=== PATIENT | female | born 1995 | race Caucasian/White ===

== ENCOUNTER 2017-06-09 15:22 | Emergency (ER) | payer OTHER ==
[~2017-06-09] VITALS: Ht 147.3 cm; Wt 35.9 kg
[2017-06-09 15:27] VITALS: TEMP 36.9; Ht 147.3 cm; Wt 35.9 kg
--- NOTE | 2017-06-09 16:29 | EMERGENCY ROOM VISIT NOTE ---
History First contact with patient: 15:58 Chief Complaint: WOUND INFECTION Stated Complaint: BIG RED PIMPLE IN ARMPIT Nursing Triage Summary: Patient states she has multiple little lumps under her skin that have been there over one year. She has had them checked before but was told they were not concerning unless they became red. One small lump under left axilla is now red and sore. History of Present Illness The patient is a 21 year old female who presents to the Emergency Room via private vehicle with complaints of "big red pimple and arm pit". The patient states that over the past few years she has had small bumps on her skin in both the axilla and on her chest. She states that she is from [place], and her doctor back home told her that there is nothing to do about them a message become red and painful. She states that she is here today because one is red and painful in the left axilla. She states she notes last night, and it was normal for her but since then has progressed to being red and painful. She denies any recent illness or travel, no recent antibiotic use, no medicine, and no pertinent past medical history. She denies any fevers, chills, night sweats , nausea, vomiting, chills, urinary abnormality is, chest pain, shortness of breath. She has had diarrhea for the past 2 days. Review of Systems A complete 6-point Review of Systems was discussed with the patient, with pertinent positives and negatives listed in the History of Present Illness. All remaining Review of Systems questions can be considered negative unless otherwise specified. Past Medical/Surgical History Medical Problems: (1) No significant medical problems Surgical Problems: (1) No significant past surgical history Family History No pertinent. Social History Smoking Status: Never Smoker Alcohol Use: none Marital Status: single Occupation Status: [employer] student Patient is currently a [employer] student. Current/Historical Medications Scheduled Cephalexin Monohydrate (Keflex), 500 MG PO QID Sulfa/Trimethoprim (Bactrim Ds 800MG/160MG), 1 TAB PO BID Physical Exam Vital Signs Date Time Temp Pulse Resp B/P (MAP) Pulse Ox O2 Delivery O2 Flow Rate FiO2 06/09/17 18:17 70 15 119/68 100 06/09/17 15:27 36.9 80 16 120/84 99 Room Air Physical Exam VITAL SIGNS - Vital signs and nursing notes were reviewed. Afebrile, normotensive, non-tachycardic and saturating well on room air at 99%. GENERAL -21-year-old female appearing her stated age who is in no acute distress. Communicates well with provider and answers questions appropriately. SKIN - there is a small nodule measuring 1 cm in diameter appreciable in the left axilla favoring the proximal aspect of the humerus. This is tender to palpation, but not fluctuant. Small surrounding area of erythema. No lymphangitic streaking. Full range of motion of this region. No other abnormalities noted of this extremity. HEAD - NC/AT. LUNGS - Chest wall symmetric without accessory muscle use, intercostals retractions, or central cyanosis. Normal vesicular breath sounds CTA B/L. No wheezes, rales, or rhonchi appreciated. CARDIAC - RRR with S1/S2. No murmur, rubs, or gallops appreciated. NEUROLOGIC - Cranial nerves II through XII grossly intact. PSYCH - A&O. Pt is very pleasant and interacts well with examiner. Medical Decision & Procedures ER Provider Diagnostic Interpretation: LEFT EXTREMITY NONVASCULAR LIMITED CLINICAL HISTORY: 21 years-old Female presenting with Lump in axilla. Absess/sebaceous cyst/lymph node?. TECHNIQUE: Real-time grayscale ultrasound imaging of the right axilla was performed. Color Doppler was also performed. COMPARISON: None. FINDINGS: Focal examination at the site of clinical interest in the right axilla demonstrates and ill-defined heterogeneously hypoechoic 0.8 x 0.4 x 0.7 cm region in the subcutaneous fat. Heterogeneous peripheral vascularity. This does not have a configuration of a lymph node. IMPRESSION: 1. Heterogeneous subcentimeter collection in the subcutaneous tissue of the axilla suggestive of phlegmon/early abscess. Electronically signed by: Kofi Hoffmann M.D. 06/09/2017 5:36 PM Dictated Date/Time: 06/09/2017 5:34 PM Medications Administered Medications (Trade) Dose Ordered Sig/Essence Route Start Time Stop Time Status Last Admin Dose Admin Ibuprofen (Advil Tab) 200 mg NOW STAT PO 06/09/17 18:08 06/09/17 18:21 DC 06/09/17 18:14 200 MG Medical Decision Patient was seen and evaluated as above. After obtaining a thorough history and physical examination it was decided that an ultrasound to be performed of the region as concerned this could be a lymph node. Ultrasound exclude lymph node. This is likely phlegmon/early abscess. Because the location, I do not believe that trying to incise this is appropriate. At this time we'll begin with a course of Keflex and Bactrim. Care was taken to ensure that this was cannulated appropriately for her weight. This was discussed with the pharmacist. She is to return with worsening, and to follow-up with [facility]. She is a [employer] student. At this time she is not septic, and has stable vital signs. She appears to be stable for outpatient management. She was educated upon worrisome symptoms which to return, had questions about it, and was discharged home in good condition. In evaluation treatment this patient following differential diagnoses were entertained: Cellulitis, lymph node enlargement, abscess, among others. Impression Primary Impression: Cellulitis Departure Information Dispostion Home / Self-Care Condition GOOD Prescriptions Sulfa/Trimethoprim (Bactrim Ds 800MG/160MG) Tab 1 TAB PO BID for 10 Days, #20 TAB Prov: Eddie Lezama PA-C 06/09/17 Cephalexin Monohydrate (Keflex) 500 Mg Cap 500 MG PO QID for 10 Days, #40 CAP Prov: Eddie Lezama PA-C 06/09/17 Referrals No Doctor, Assigned (PCP) Patient Instructions [facility] Additional Instructions You have been treated in the Emergency Department your left armpit swelling, which has been determined to be an infection. You've been prescribed Keflex. This is 500 mg every 6 hours for 10 days. This is an antibiotic. You have prescribed Bactrim. This is one tablet every 12 hours for 10 days. This is an antibiotic. Please take these as directed. Please pick these up with the pharmacy. I recommend following up with [facility], as well as returning here for any worsening of her symptoms. As we discussed you're ultrasound does reveal Focal examination at the site of clinical interest in the right axilla demonstrates and ill-defined heterogeneously hypoechoic 0.8 x 0.4 x 0.7 cm region in the subcutaneous fat. Heterogeneous peripheral vascularity. This does not have a configuration of a lymph node. 1. Heterogeneous subcentimeter collection in the subcutaneous tissue of the axilla suggestive of phlegmon/early abscess. For pain she may take ibuprofen. This is 200 mg every 6 hours as needed for your pain. Drink plenty of water and stay well hydrated. As with any trip to the Emergency Department, you should follow-up with your Primary Care Provider from today's visit. Please call [facility] to schedule follow-up. Please watch for worsening redness, swelling or drainage and if these were to occur please return medially. Please also return for any fevers or chills. Return to the emergency department if your symptoms persist despite treatment plan outlined above or if the following symptoms occur: increased fevers, chills , worsening nausea/vomiting, blood in your stool or urine. Thank you for your time. If you have any questions please do not hesitate to call [phone]
--- NOTE | 2017-06-09 17:37 | DIAGNOSTIC IMAGING REPORT ---
LEFT EXTREMITY NONVASCULAR LIMITED CLINICAL HISTORY: 21 years-old Female presenting with Lump in axilla. Absess/sebaceous cyst/lymph node?. TECHNIQUE: Real-time grayscale ultrasound imaging of the right axilla was performed. Color Doppler was also performed. COMPARISON: None. FINDINGS: Focal examination at the site of clinical interest in the right axilla demonstrates and ill-defined heterogeneously hypoechoic 0.8 x 0.4 x 0.7 cm region in the subcutaneous fat. Heterogeneous peripheral vascularity. This does not have a configuration of a lymph node. IMPRESSION: 1. Heterogeneous subcentimeter collection in the subcutaneous tissue of the axilla suggestive of phlegmon/early abscess. Electronically signed by: Kofi Hoffmann M.D. 06/09/2017 5:36 PM Dictated Date/Time: 06/09/2017 5:34 PM
[2017-06-09] MEDS ORDERED: SULF800T23 PO (18:07)
[2017-06-09] MEDS ORDERED: CEPH500C PO (18:07)
[2017-06-09] MEDS ORDERED: IBUPROFEN 200 MG TAB PO STA (18:08)
[2017-06-09 18:17] VITALS: BP 119/68; PULSE 70; O2SAT 100
== END 2017-06-09 18:18 | disposition home or self-care (01) ==
LOC: C.EDB 15:24 → C.EDD 18:18
DX: L03.112 Cellulitis of left axilla (principal)

== ENCOUNTER 2017-10-25 02:48 | Emergency (ER) | payer OTHER ==
[~2017-10-25] VITALS: Ht 144.8 cm; Wt 38.0 kg
[2017-10-25 02:53] VITALS: Ht 144.8 cm; Wt 38.0 kg
[2017-10-25] MEDS ORDERED: ALUMINUM/MAGNESIUM SUSP 30 ML UDC PO STA (03:10)
[2017-10-25] MEDS ORDERED: LIDOCAINE HCL 2% VISC SOLN 20 ML UDC PO STA (03:10)
[2017-10-25] MEDS ORDERED: SODIUM CHLORIDE 0.9% 1000ML 1,000 ML IV STA (03:10)
[2017-10-25 03:27] VITALS: O2SAT 98
[2017-10-25 03:55] LABS: HEMATOCRIT 40.8 % (37-47); HEMOGLOBIN 13.7 g/dL (12.0-16.0); MEAN CELL VOLUME 80.8 fL (80-100); MEAN CORPUSCULAR HEMOGLOBIN 27.1 pg (25-34); MEAN CORPUSCULAR HGB CONC 33.6 g/dl (32-36); MEAN PLATELET VOLUME 10.6 fL (7.4-10.4); PLATELET COUNT 185 K/uL (130-400); RED CELL DISTRIBUTION WIDTH CV 12.4 % (11.5-14.5); RED CELL DISTRIBUTION WIDTH SD 36.2 fL (36.4-46.3); WHITE BLOOD COUNT 2.72 K/uL (4.8-10.8)
[2017-10-25 04:13] LABS: ALKALINE PHOSPHATASE 46 U/L (45-117); ALT/SGPT 21 U/L (12-78); AST/SGOT 28 U/L (15-37); BLOOD UREA NITROGEN 7 mg/dl (7-18); CALCIUM 8.5 mg/dl (8.5-10.1); CARBON DIOXIDE 27 mmol/L (21-32); CREATININE 0.59 mg/dl (0.60-1.20); GLUCOSE 80 mg/dl (70-99); POTASSIUM 3.1 mmol/L (3.5-5.1); SODIUM 137 mmol/L (136-145); TOTAL PROTEIN 7.4 gm/dl (6.4-8.2)
[2017-10-25] MEDS ORDERED: POTASSIUM CHLORIDE 10 MEQ TABCR PO STA (04:25)
[2017-10-25 05:42] VITALS: BP 109/63; PULSE 90; TEMP 36.6; O2SAT 98
--- NOTE | 2017-10-25 05:45 | EMERGENCY ROOM VISIT NOTE ---
History First contact with patient: 02:56 Chief Complaint: DIZZY Stated Complaint: DIZZY,DIARRHEA SINCE TUESDAY Nursing Triage Summary: pt ambulatory to triage, states diarrhea started tuesday night and today started feeling dizzy. pt states it feels better to lay down. denies vomiting. History of Present Illness The patient is a 22 year old female who presents to the Emergency Room with complaints of upset stomach and diarrhea for the past few days. No recent antibiotics. No well water. She returned home from [facility] 2 weeks ago. Patient denies chest pain, dyspnea, fever, chills, vomiting, back pain, urinary symptoms. She's had a few episodes of diarrhea but nothing major. Patient states she does not eat much. She states she has no desire to eat and this is not new. Patient states she feels slightly lightheaded is worse standing up and better with laying down. Review of Systems See HPI for pertinent positives & negatives. A total of 10 systems reviewed and were otherwise negative. Past Medical/Surgical History Medical Problems: (1) No significant medical problems Surgical Problems: (1) No significant past surgical history Social History Smoking Status: Never Smoker Smokeless Tobacco Use: No Alcohol Use: none Drug Use: none Marital Status: single Occupation Status: [employer] student Current/Historical Medications No Active Prescriptions or Reported Meds Physical Exam Vital Signs Date Time Temp Pulse Resp B/P (MAP) Pulse Ox O2 Delivery O2 Flow Rate FiO2 10/25/17 05:42 36.6 90 16 109/63 98 Room Air 10/25/17 04:53 90 16 117/72 98 10/25/17 03:34 94 10/25/17 03:27 100 Room Air 10/25/17 03:27 98 Room Air 10/25/17 03:24 58 16 116/54 100 Room Air 86 113/63 92 106/73 10/25/17 02:53 36.6 94 18 108/70 100 Room Air Physical Exam VITALS: Vitals are noted on the nurse's note and reviewed by myself. Vital signs stable. GENERAL: Pleasant female, in no acute distress, nondiaphoretic, well-developed well-nourished. SKIN: The skin was without rashes, erythema, edema, or bruising. There is no tenting of the skin. Capillary reflex less than 2 seconds. HEAD: Normocephalic atraumatic. EARS: External auditory canals clear, tympanic membranes pearly goddard without erythema or effusion bilaterally. EYES: Pupils equal round and reactive to light and accommodation. Conjunctivae without injection, sclerae without icterus. Extraocular movements intact. NOSE: Patent, turbinates without inflammation or discharge. No sinus tenderness. MOUTH: Mucous membranes mildly dry. Pharynx without erythema or exudate. Uvula midline. Airway patent. Tongue does not deviate. NECK: Supple without nuchal rigidity. No lymphadenopathy. No thyromegaly. Cervical spine is nontender. No JVD. HEART: Regular rate and rhythm without murmurs gallops or rubs. LUNGS: Clear to auscultation bilaterally without wheezes, rales or rhonchi. No dullness to percussion. No retractions or accessory muscle use. ABDOMEN: Positive bowel sounds x 4. Normal tympanic percussion. Soft, nontender, without masses or organomegaly. Fernández sign negative. No guarding or rebound tenderness. No CVA tenderness MUSCULOSKELETAL: No muscle atrophy, erythema, or edema noted. NEURO: Patient was alert and oriented to person place and time. Normal sensation to light and sharp touch. No focal neurological deficits. Medical Decision & Procedures Laboratory Results 10/25/17 03:30 Red Blood Count 5.05, Mean Corpuscular Volume 80.8, Mean Corpuscular Hemoglobin 27.1, Mean Corpuscular Hemoglobin Concent 33.6, Mean Platelet Volume 10.6 10/25/17 03:30 Test 10/25/17 03:15 10/25/17 03:30 Urine Color YELLOW Urine Appearance CLEAR (CLEAR) Urine pH 5.5 (4.5-7.5) Urine Specific [place] 1.016 (1.000-1.030) Urine Protein NEG (NEG) Urine Glucose (UA) NEG (NEG) Urine Ketones NEG (NEG) Urine Occult Blood NEG (NEG) Urine Nitrite NEG (NEG) Urine Bilirubin NEG (NEG) Urine Urobilinogen NEG (NEG) Urine Leukocyte Esterase NEG (NEG) White Blood Count 2.72 K/uL (4.8-10.8) Red Blood Count 5.05 M/uL (4.2-5.4) Hemoglobin 13.7 g/dL (12.0-16.0) Hematocrit 40.8 % (37-47) Mean Corpuscular Volume 80.8 fL (80-100) Mean Corpuscular Hemoglobin 27.1 pg (25-34) Mean Corpuscular Hemoglobin Concent 33.6 g/dl (32-36) Platelet Count 185 K/uL (130-400) Mean Platelet Volume 10.6 fL (7.4-10.4) RDW Standard Deviation 36.2 fL (36.4-46.3) RDW Coefficient of Variation 12.4 % (11.5-14.5) Neutrophils % (Manual) 34.2 % Lymphocytes % (Manual) 38.6 % Variant Lymphocytes % (manual) 15.8 % Monocytes % (Manual) 9.6 % Eosinophils % (Manual) 0.9 % Basophils % (Manual) 0.9 % Neutrophils # (Manual) 0.93 K/uL (1.4-6.5) Total Absolute Neutrophils 0.93 K/uL (1.4-6.5) Lymphocytes # (Manual) 1.05 K/uL (1.2-3.4) Absolute Variant Lymphocytes 0.43 K/uL Total Absolute Lymphocytes 1.48 K/uL (1.2-3.4) Monocytes # (Manual) 0.26 K/uL (0.11-0.59) Eosinophils # (Manual) 0.02 K/uL (0-0.5) Basophils # (Manual) 0.02 K/uL (0-0.2) Ovalocytes 1+ Anion Gap 5.0 mmol/L (3-11) Est Creatinine Clear Calc Drug Dose 89.7 ml/min Estimated GFR () > 150.0 Estimated GFR (Non- 130.1 BUN/Creatinine Ratio 12.4 (10-20) Calcium Level 8.5 mg/dl (8.5-10.1) Total Bilirubin 0.5 mg/dl (0.2-1) Direct Bilirubin 0.1 mg/dl (0-0.2) Aspartate Amino Transf (AST/SGOT) 28 U/L (15-37) Alanine Aminotransferase (ALT/SGPT) 21 U/L (12-78) Alkaline Phosphatase 46 U/L (45-117) Total Protein 7.4 gm/dl (6.4-8.2) Albumin 4.0 gm/dl (3.4-5.0) Human Chorionic Gonadotropin, Qual NEG (NEG) Medications Administered Medications (Trade) Dose Ordered Sig/Essence Route Start Time Stop Time Status Last Admin Dose Admin Lidocaine HCl (Viscous Lidocaine 2% Soln) 10 ml NOW STAT PO 10/25/17 03:10 10/25/17 03:12 DC 10/25/17 03:42 10 ML Al Hydroxide/Mg Hydroxide (Maalox Susp) 30 ml NOW STAT PO 10/25/17 03:10 10/25/17 03:12 DC 10/25/17 03:42 30 ML Sodium Chloride 1,000 ml @ 999 mls/hr Q1H1M STAT IV 10/25/17 03:10 10/25/17 04:10 DC 10/25/17 03:42 999 MLS/HR Potassium Chloride (Klor-Con M10) 40 meq NOW STAT PO 10/25/17 04:25 10/25/17 04:26 DC 10/25/17 04:46 40 MEQ ED Course Prior records/ancillary studies reviewed. Triage Nursing notes reviewed. The patient's history was concerning for nausea, lightheadedness diarrhea, and upset stomach. Differential diagnosis: Etiologies such as dehydration, starvation, gastroenteritis, food borne illness , infections, appendicitis, diverticulitis, inflammatory bowel disease, obstruction, GI bleed, biliary pathology, as well as others were entertained. Physical examination findings: As above. Abdominal examination revealed no tenderness. Vital signs reviewed and revealed positive orthostatics. ER treatment provided: IV hydration 1 L NSS. GI cocktail On reassessment the patient felt better. Patient was tolerating p.o. intake. Diagnostics interpretation by me: The labs revealed wbc 2.72, with a low absolute neutrophil count Stable H&H This appears to be consistent with dehydration and low absolute neutrophil count who is afebrile and nontoxic. Patient was advised to repeat her CBC within the week with health services and if her neutrophil count is still low to follow-up with hematology. Patient was strongly encouraged to eat regular meals and stay well-hydrated. She did not have acute abdomen on exam. She is well-appearing. She is tolerating fluids. She is advised to follow-up health services in a few days or here in the ER sooner for abdominal pain, fevers, vomiting, worsening signs or symptoms or as needed By the evaluation outlined above emergent etiologies such as appendicitis, diverticulitis, obstruction, cardiac sources, mesenteric ischemia, aortic pathology, inflammatory bowel disease, renal colic, PUD, biliary pathology, UTI, as well as others were deemed relatively unlikely. The pt informed about the findings as listed above. All questions were answered and pleased with the treatment. Return instructions were outlined and the patient was discharged in stable condition. Case reviewed with my attending Referral: The patient was referred to their primary care physician/S for follow-up in 2 to 3 days for a recheck of the current condition. Medical Decision As above Medication Reconcilliation Current Medication List: was personally reviewed by me Blood Pressure Screening Patient's blood pressure: Normal blood pressure Impression Primary Impression: Dehydration Additional Impressions: Diarrhea Hypokalemia Departure Information Dispostion Home / Self-Care Condition GOOD Prescriptions No Active Prescriptions or Reported Meds Referrals [facility] (PCP) Patient Instructions My [facility] Additional Instructions You need to have your CBC rechecked within the week by health services. Your absolute neutrophil count is low. Zofran(odansetron) tablets 4mg: Take one and allow it to dissolve in your mouth every four to six hours as needed for nausea or vomiting. Rest and drink plenty of fluids as tolerated. Slow sips of water or sports drinks are recommended instead of large amounts all at once. Continue current medications. Once your stomach is settled start with a clear liquid diet (jello, soup broth, etc.) and then advance as tolerated. You should avoid full, heavy meals for about 24 hrs from the time your symptoms resolved. Return to the ER for persistent vomiting, fevers, abdominal pain, chest pains, difficulty breathing, black or bloody stools, worsening of your condition, or as needed. Follow up with your primary physician/health services in 2-3 days for a recheck of your current condition. Problem Qualifiers
[2017-10-25] MEDS ORDERED: ONDANSETRON HOME PACK 4MG OD TAB PO ONE (06:00)
== END 2017-10-25 06:06 | disposition home or self-care (01) ==
LOC: C.EDB 02:48
DX: E86.0 Dehydration (principal); R19.7 Diarrhea, unspecified; E87.6 Hypokalemia

== ENCOUNTER 2017-10-29 01:37 | Emergency (ER) | payer OTHER ==
[~2017-10-29] VITALS: Ht 144.8 cm; Wt 38.1 kg
[2017-10-29 01:41] VITALS: TEMP 36.5; Ht 144.8 cm; Wt 38.1 kg
[2017-10-29] MEDS ORDERED: DICYCLOMINE HCL 20 MG TAB PO STA (02:15)
[2017-10-29] MEDS ORDERED: DICYCLOMINE HCL 10 MG CAP ONE (02:20)
[2017-10-29 02:38] LABS: HEMATOCRIT 36.2 % (37-47); HEMOGLOBIN 12.2 g/dL (12.0-16.0); MEAN CELL VOLUME 80.6 fL (80-100); MEAN CORPUSCULAR HEMOGLOBIN 27.2 pg (25-34); MEAN CORPUSCULAR HGB CONC 33.7 g/dl (32-36); MEAN PLATELET VOLUME 10.3 fL (7.4-10.4); PLATELET COUNT 192 K/uL (130-400); RED CELL DISTRIBUTION WIDTH CV 12.4 % (11.5-14.5); RED CELL DISTRIBUTION WIDTH SD 36.3 fL (36.4-46.3); WHITE BLOOD COUNT 3.43 K/uL (4.8-10.8)
[2017-10-29 02:56] LABS: ALBUMIN 3.7 gm/dl (3.4-5.0); ALT/SGPT 24 U/L (12-78); AST/SGOT 19 U/L (15-37); BLOOD UREA NITROGEN 9 mg/dl (7-18); CALCIUM 8.6 mg/dl (8.5-10.1); CARBON DIOXIDE 28 mmol/L (21-32); CREATININE 0.52 mg/dl (0.60-1.20); GLUCOSE 86 mg/dl (70-99); POTASSIUM 3.4 mmol/L (3.5-5.1); SODIUM 140 mmol/L (136-145)
[2017-10-29 02:59] LABS: ALKALINE PHOSPHATASE 50 U/L (45-117); TOTAL PROTEIN 6.8 gm/dl (6.4-8.2)
[2017-10-29] MEDS ORDERED: MAGNESIUM HYDROXIDE SUSP 30 ML UDC PO ONE (03:15)
--- NOTE | 2017-10-29 04:35 | EMERGENCY ROOM VISIT NOTE ---
History Report prepared by Debbei: Marge Wan Under the Supervision of: Dr. Eilsabeth Mantilla D.O. First contact with patient: 02:03 Chief Complaint: CONSTIPATION Stated Complaint: HAVE NOT POOPED SINCE TUE. PAIN IN MY STOMACH History of Present Illness The patient is a 22 year old female who presents to the Emergency Room with complaints of persistent constipation starting 4 days ago. The patient was seen in the ED 5 days ago with diarrhea. Her last bowel movement was diarrhea 4 days ago. She is still passing gas, but has not had any bowel movements. She reports abdominal pain which occurs after eating. She reports abdominal bloating. She denies any vomiting, fever, or chills. She has been eating and drinking well. She has recently traveled to [facility] and [place] and has been eating many different foods. She was also found to have low potassium 5 days ago. Source of History: patient Onset: 4 days ago Position: other (global) Quality: other (constipation) Timing: other (persistent) Associated Symptoms: + abdominal pain, No fevers, No chills, No vomiting Review of Systems See HPI for pertinent positives & negatives. A total of 10 systems reviewed and were otherwise negative. Past Medical & Surgical Medical Problems: (1) No significant medical problems Surgical Problems: (1) No significant past surgical history Family History Diabetes mellitus FHx: cancer Kidney disease Kidney stones Social History Smoking Status: Never Smoker Alcohol Use: none Drug Use: none Marital Status: single Occupation Status: [employer] Current/Historical Medications No Active Prescriptions or Reported Meds Allergies Coded Allergies: No Known Allergies (Unverified , 10/29/17) Physical Exam Vital Signs Date Time Temp Pulse Resp B/P (MAP) Pulse Ox O2 Delivery O2 Flow Rate FiO2 10/29/17 04:49 85 20 111/72 99 10/29/17 03:00 86 20 104/63 98 Room Air 10/29/17 01:41 36.5 91 18 99/61 94 Room Air Physical Exam GENERAL: alert, well appearing, well nourished, no distress, non-toxic EYE EXAM: normal conjunctiva, PERRL and EOM's grossly intact OROPHARYNX: no exudate, no erythema, lips, buccal mucosa, and tongue normal and mucous membranes are moist NECK: supple, no nuchal rigidity, no adenopathy, non-tender LUNGS: Clear to auscultation. Normal chest wall mechanics HEART: no murmurs, S1 normal and S2 normal ABDOMEN: abdomen soft, dull to percussion, non-tender, normo-active bowel sounds , no masses, no rebound or guarding. BACK: Back is symmetrical on inspection and there is no deformity, no midline tenderness, no CVA tenderness. SKIN: no rashes and no bruising UPPER EXTREMITIES: upper extremities are grossly normal. LOWER EXTREMITIES: No pitting edema. NEURO EXAM: Normal sensorium, cranial nerves II-XII grossly intact, normal speech, no gross weakness of arms, no gross weakness of legs. Medical Decision & Procedures ER Provider Diagnostic Interpretation: X-ray: I interpreted the following studies. Chest: A two view study of the chest was reviewed and was negative for cardiomegaly, effusion, wide mediastinum, consolidation. No free air under the diaphragm. Abdomen: Moderate stool burden. No definite SBO. Laboratory Results 10/29/17 02:22 Red Blood Count 4.49, Mean Corpuscular Volume 80.6, Mean Corpuscular Hemoglobin 27.2, Mean Corpuscular Hemoglobin Concent 33.7, Mean Platelet Volume 10.3 10/29/17 02:22 Test 10/29/17 02:22 White Blood Count 3.43 K/uL (4.8-10.8) Red Blood Count 4.49 M/uL (4.2-5.4) Hemoglobin 12.2 g/dL (12.0-16.0) Hematocrit 36.2 % (37-47) Mean Corpuscular Volume 80.6 fL (80-100) Mean Corpuscular Hemoglobin 27.2 pg (25-34) Mean Corpuscular Hemoglobin Concent 33.7 g/dl (32-36) Platelet Count 192 K/uL (130-400) Mean Platelet Volume 10.3 fL (7.4-10.4) RDW Standard Deviation 36.3 fL (36.4-46.3) RDW Coefficient of Variation 12.4 % (11.5-14.5) Neutrophils % (Manual) 35.7 % Lymphocytes % (Manual) 44.2 % Variant Lymphocytes % (manual) 14.8 % Monocytes % (Manual) 2.6 % Eosinophils % (Manual) 0.9 % Basophils % (Manual) 0.9 % Myelocytes % 0.9 % Neutrophils # (Manual) 1.22 K/uL (1.4-6.5) Total Absolute Neutrophils 1.22 K/uL (1.4-6.5) Lymphocytes # (Manual) 1.52 K/uL (1.2-3.4) Absolute Variant Lymphocytes 0.51 K/uL Total Absolute Lymphocytes 2.02 K/uL (1.2-3.4) Monocytes # (Manual) 0.09 K/uL (0.11-0.59) Eosinophils # (Manual) 0.03 K/uL (0-0.5) Basophils # (Manual) 0.03 K/uL (0-0.2) Myelocytes # 0.03 K/uL (0-0) Red Blood Cell Morphology Unremarkable Anion Gap 4.0 mmol/L (3-11) Est Creatinine Clear Calc Drug Dose 102.1 ml/min Estimated GFR () > 150.0 Estimated GFR (Non- 135.6 BUN/Creatinine Ratio 18.1 (10-20) Calcium Level 8.6 mg/dl (8.5-10.1) Magnesium Level 2.0 mg/dl (1.8-2.4) Total Bilirubin 0.3 mg/dl (0.2-1) Aspartate Amino Transf (AST/SGOT) 19 U/L (15-37) Alanine Aminotransferase (ALT/SGPT) 24 U/L (12-78) Alkaline Phosphatase 50 U/L (45-117) Total Protein 6.8 gm/dl (6.4-8.2) Albumin 3.7 gm/dl (3.4-5.0) Globulin 3.1 gm/dl (2.5-4.0) Albumin/Globulin Ratio 1.2 (0.9-2) Laboratory results per my review. Medications Administered Medications (Trade) Dose Ordered Sig/Essence Route Start Time Stop Time Status Last Admin Dose Admin Dicyclomine HCl (Bentyl Cap) 20 mg STK-MED ONCE .ROUTE 10/29/17 02:20 10/29/17 02:21 DC 10/29/17 02:22 20 MG Magnesium Hydroxide (Milk Of Magnesia Susp) 30 ml NOW ONCE PO 10/29/17 03:15 10/29/17 03:16 DC 10/29/17 03:20 30 ML ED Course 0211: The patient was evaluated in room B8. A complete history and physical exam was performed. 0215: Bentyl Tab 20 mg PO. 0315: Magnesium Hydroxide 30 ml PO. 0405: Upon reevaluation, the patient is feeling better. I discussed the findings and the treatment plan with the patient. She verbalizes agreement and understanding. She was discharged home. Medical Decision Differential diagnosis: Etiologies such as appendicitis, diverticulitis, PUD, biliary pathology, UTI, pancreatitis, obstruction, mesenteric ischemia, aortic pathology, infections, inflammatory bowel disease, renal colic, as well as others were entertained. Patient well-appearing here despite complaints, abdominal exam soft and nontender. Patient noted to have stool on x-ray. Patient's labs reassuring, and improved potassium level as well as WBC's compared to prior. Discussed with patient medications to help with constipation. Discussed follow-up with family doctor, discussed symptoms to watch and return for, she verbalized understanding was agreeable with plan. Doubt colitis, perforation, occult GI bleed, mesenteric ischemia, bowel obstruction. No history of IBS or inflammatory bowel disease. Medication Reconcilliation Current Medication List: was personally reviewed by me Blood Pressure Screening Patient's blood pressure: Normal blood pressure Blood pressure disposition: Did not require urgent referral Impression Primary Impression: Constipation Additional Impression: Hypokalemia Scribe Attestation The scribe's documentation has been prepared under my direction and personally reviewed by me in its entirety. I confirm that the note above accurately reflects all work, treatment, procedures, and medical decision making performed by me. Departure Information Dispostion Home / Self-Care Prescriptions No Active Prescriptions or Reported Meds Referrals No Doctor, Assigned (PCP) Patient Instructions My [facility] Additional Instructions Please drink plenty of water. You may use milk of magnesia to help with constipation. If you don't have any relief you may also try miralax which is over the counter also. If you have any worsening or more consistent abdominal pain, develop nausea/vomiting, fevers/chills, please return to the emergency room. Problem Qualifiers Primary Impression: Constipation Constipation type: unspecified constipation type Qualified Codes: K59.00 - Constipation, unspecified
[2017-10-29 04:49] VITALS: BP 111/72; PULSE 85; O2SAT 99
--- NOTE | 2017-10-29 06:09 | DIAGNOSTIC IMAGING REPORT ---
ABDOMEN 2VIEW W/PA CHEST RTN CLINICAL HISTORY: constipation, recent diarrhea pain COMPARISON STUDY: No previous studies for comparison. FINDINGS: The soft tissues, psoas shadows, renal outlines and intestinal gas pattern appear normal. There is no evidence for bowel obstruction. There is no evidence for free intraperitoneal air. No abnormal abdominal calcifications are seen. A frontal view of the chest was performed and is unremarkable. Mild increase in fecal load throughout the colon IMPRESSION: Negative chest. Mild increase in fecal load throughout the colon consistent with fecal stasis. The above report was generated using voice recognition software. It may contain grammatical, syntax or spelling errors. Electronically signed by: Parvez Suazo M.D. 10/29/2017 6:07 AM Dictated Date/Time: 10/29/2017 6:07 AM
== END 2017-10-29 04:50 | disposition home or self-care (01) ==
LOC: C.EDB 01:38
DX: K59.00 Constipation, unspecified (principal); E87.6 Hypokalemia; Z83.3 Family history of diabetes mellitus; Z80.9 Family history of malignant neoplasm, unspecified; Z84.1 Family history of disorders of kidney and ureter